=== PATIENT | male | born 1950 | race Caucasian/White ===

== ENCOUNTER 2019-01-25 19:37 | Emergency (ER) | payer OTHER ==
[~2019-01-25] VITALS: Ht 172.7 cm; Wt 111.6 kg
[2019-01-25 21:50] LABS: BILIRUBIN,URINE NEGATIVE (NEGATIVE); CLARITY,URINE CLEAR (CLEAR); COLOR,URINE COLORLESS (YELLOW); KETONES,URINE NEGATIVE (NEGATIVE); LEUKOCYTE ESTERASE ,URINE NEGATIVE (NEGATIVE); NITRITE,URINE NEGATIVE (NEGATIVE); PROTEIN,URINE DIPSTICK NEGATIVE (NEGATIVE); URINE UROBILINOGEN 0.2 mg/dL (0.2 - 1)
[2019-01-25 22:39] LABS: RBC,URINE 0-5 /HPF (0-5); WBC,URINE (MAN) 0-5 /HPF (0-5)
== END 2019-01-25 23:04 | disposition left against medical advice (07) ==
LOC: ER 19:37
DX: I10 Essential (primary) hypertension (principal)
CPT/HCPCS: 81001; 87086

== ENCOUNTER 2020-03-26 13:28 | Emergency (ER) | payer OTHER ==
[~2020-03-26] VITALS: Ht 172.7 cm; Wt 111.6 kg
[2020-03-26] MEDS ORDERED: SODIUM CHLORIDE 0.9% 1000ML 1,000 ML IV STA (13:59)
[2020-03-26 14:18] LABS: BASOPHILS # (AUTO) 0.1 (0.0-0.1); BASOPHILS % 0.7 % (0.0-1.0); EOSINOPHILS # (AUTO) 0.1 (0.0-0.4); EOSINOPHILS % 1.1 % (0.0-6.0); HEMATOCRIT 49.2 % (38.2-49.6); HEMOGLOBIN 15.9 g/dL (14.0-18.0); LYMPHOCYTES # (AUTO) 1.1 (1.0-3.2); LYMPHOCYTES % 14.6 % (18.0-39.1); MEAN CORPUSCULAR HEMOGLOBIN 28.6 pg (28-32); MEAN CORPUSCULAR HGB CONC 32.3 g/dL (31-35); MEAN CORPUSCULAR VOLUME 88.6 fL (81-99); MONOCYTES # (AUTO) 0.6 (0.2-0.8); MONOCYTES % 7.5 % (4.4-11.3); NEUTROPHILS # (AUTO) 5.7 (2.1-6.9); NEUTROPHILS % 75.8 % (38.7-80.0); PLATELET COUNT 248 x10e3/uL (140-360); RED BLOOD COUNT 5.55 x10e6/uL (4.3-5.7); RED CELL DISTRIBUTION WIDTH 13.7 % (11.7-14.4)
[2020-03-26 14:33] LABS: INR 0.87; PROTHROMBIN TIME 12.3 seconds (11.9-14.5)
[2020-03-26 14:34] LABS: PARTIAL THROMBOPLASTIN TIME 24.9 seconds (23.8-35.5)
[2020-03-26 14:38] LABS: BILIRUBIN,URINE NEGATIVE (NEGATIVE); CLARITY,URINE SL CLOUDY (CLEAR); COLOR,URINE YELLOW (YELLOW); KETONES,URINE NEGATIVE (NEGATIVE); LEUKOCYTE ESTERASE ,URINE NEGATIVE (NEGATIVE); NITRITE,URINE NEGATIVE (NEGATIVE); PROTEIN,URINE DIPSTICK NEGATIVE (NEGATIVE); URINE UROBILINOGEN 0.2 mg/dL (0.2 - 1)
[2020-03-26 14:41] LABS: ALANINE AMINOTRANSFERASE 25 IU/L (0-55); ALBUMIN 3.9 g/dL (3.5-5.0); ALKALINE PHOSPHATASE 70 IU/L (40-150); ANION GAP 13.7 mmol/L (8-16); BLOOD UREA NITROGEN 27 mg/dL (7-26); BUN/CREATININE RATIO 20 (6-25); CALCIUM 9.9 mg/dL (8.4-10.2); CARBON DIOXIDE 24 mmol/L (22-29); CHLORIDE 104 mmol/L (98-107); CREATINE KINASE 170 IU/L (30-200); CREATININE, SERUM 1.36 mg/dL (0.72-1.25); EST GLOMERULAR FILTRATION RATE 52 ML/MIN (60-); GLUCOSE 154 mg/dL (74-118); MAGNESIUM 1.9 MG/DL (1.3-2.1); POTASSIUM 4.7 mmol/L (3.5-5.1); SODIUM 137 mmol/L (136-145)
[2020-03-26 14:53] LABS: BACTERIA,URINE RARE /HPF; MUCUS,URINE FEW (RARE)
--- NOTE | 2020-03-26 15:32 | Diagnostic Imaging Report ---
EXAMINATION: CHEST SINGLE (PORTABLE) INDICATION: Weakness, shortness of breath COMPARISON: None FINDINGS: LINES/TUBES:None LUNGS:The lungs are moderately inflated. Mild bibasilar opacities. PLEURA:No pleural effusion or pneumothorax. MEDIASTINUM:The cardiomediastinal silhouette appears normal in size and shape. BONES/SOFT TISSUES:No acute osseous injury. ABDOMEN:No free air under the diaphragm. IMPRESSION: Mild bibasilar opacities likely represent subsegmental atelectasis, however pneumonitis should be excluded clinically. Signed by: Bro Clemons MD on 03/26/2020 3:29 PM
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
[2020-03-26 18:41] VITALS: BP 103/56
== END 2020-03-26 18:45 | disposition home or self-care (01) ==
LOC: ER 14:50
DX: J18.9 Pneumonia, unspecified organism (principal); N28.9 Disorder of kidney and ureter, unspecified; E86.0 Dehydration
CPT/HCPCS: 36415; 71045; 80053; 81001; 82550; 82553; 83735; 83880; 84484; 85025; 85610; 85730; 87040; 87086; 93005; 99284; J7030

== ENCOUNTER 2020-06-07 07:44 | Inpatient (IN) | payer OTHER ==
[2020-06-04 16:01] LABS: BASOPHILS % 0.5 % (0.0-1.0); EOSINOPHILS # (AUTO) 0.1 (0.0-0.4); HEMATOCRIT 47.2 % (38.2-49.6); HEMOGLOBIN 15.5 g/dL (14.0-18.0); LYMPHOCYTES # (AUTO) 1.3 (1.0-3.2); LYMPHOCYTES % 16.4 % (18.0-39.1); MEAN CORPUSCULAR HEMOGLOBIN 28.4 pg (28-32); MEAN CORPUSCULAR HGB CONC 32.8 g/dL (31-35); MEAN CORPUSCULAR VOLUME 86.6 fL (81-99); MONOCYTES # (AUTO) 0.5 (0.2-0.8); MONOCYTES % 6.2 % (4.4-11.3); NEUTROPHILS # (AUTO) 5.9 (2.1-6.9); NEUTROPHILS % 75.4 % (38.7-80.0); PLATELET COUNT 236 x10e3/uL (140-360); RED BLOOD COUNT 5.45 x10e6/uL (4.3-5.7); RED CELL DISTRIBUTION WIDTH 13.8 % (11.7-14.4)
[2020-06-04 16:18] LABS: ANION GAP 14.7 mmol/L (8-16); CALCIUM 9.4 mg/dL (8.4-10.2); CREATININE, SERUM 1.36 mg/dL (0.72-1.25); POTASSIUM 4.7 mmol/L (3.5-5.1)
--- NOTE | 2020-06-04 16:49 | Diagnostic Imaging Report ---
EXAMINATION: CHEST 2 VIEWS INDICATION: Preoperative evaluation of the lungs. COMPARISON: Chest x-ray on 03/26/2020 FINDINGS: TUBES and LINES: None. LUNGS: Normal lung volumes. Lungs are clear. No consolidations. Bibasilar atelectasis. PLEURA: No pleural effusion or pneumothorax. HEART AND MEDIASTINUM: The cardiomediastinal silhouette is unremarkable. BONES AND SOFT TISSUES: No acute osseous lesion. Soft tissues are unremarkable. UPPER ABDOMEN: No free air under the diaphragm. IMPRESSION: No acute thoracic radiographic abnormality. Signed by: Rigoberto Roberts MD on 06/04/2020 4:46 PM
[~2020-06-07] VITALS: Ht 172.7 cm; Wt 109.8 kg
[~2020-06-07 07:44] MED LIST: ATENOLOL50 MG; GLYBURIDE5 MG PO; JANUVIA100 MG PO; JARDIANCE10 MG; LISINOPRIL2.5 MG PO; METFORMIN HCL500 MG PO; OMEPRAZOLE40 MG; PRAVACHOL20 MG PO
[2020-06-07] MEDS ORDERED: GENTAMICIN 80MG/NS 100 ML 200 ML IV ONE (09:00)
[2020-06-07] MEDS ORDERED: PIPER-TAZ 3.375 GM 50 ML ONE (09:00)
[2020-06-07] MEDS ORDERED: B&O 60MG R/S 60 MG SUPP PR ONE (10:18)
[2020-06-07] MEDS ORDERED: IOPAMIDOL 300MG/ML 50ML INFUS..BTL IV ONE (10:18)
[2020-06-07] MEDS ORDERED: DEXAMETHASONE SOD PHOS INJ 4 MG/ML VIAL ONE (12:33)
[2020-06-07] MEDS ORDERED: ONDANSETRON HCL INJ 2MG/ML 2ML 2 MG/ML VIAL ONE (12:33)
[2020-06-07] MEDS ORDERED: SEVOFLURANE INHAL SOLN 250 ML PEN BTL ONE (12:33)
[2020-06-07] MEDS ORDERED: EPHEDRINE SULFATE INJ 50 MG/ML VIAL ONE (12:33)
[2020-06-07] MEDS ORDERED: PROPOFOL IV EMULSION 10 MG/ML 20 ML VIAL ONE (12:33)
[2020-06-07] MEDS ORDERED: LIDOCAINE HCL 2% LOCAL INJ 5 ML SDV VIAL INJ ONE (12:33)
[2020-06-07] MEDS ORDERED: B&O 60MG R/S 60 MG SUPP PR PRN (13:15)
[2020-06-07] MEDS ORDERED: ONDANSETRON HCL INJ 2MG/ML 2ML 2 MG/ML VIAL IV PRN (13:15)
[2020-06-07] MEDS ORDERED: TRAMADOL HCL 50 MG TAB PO PRN (13:15)
[2020-06-07] MEDS ORDERED: DIPHENHYDRAMINE HCL 25 MG CAP PO PRN (13:15)
[2020-06-07] MEDS ORDERED: D5.45%NS/KCL 20MEQ 1,000 ML IV SCH (13:15)
[2020-06-07] MEDS ORDERED: PHENAZOPYRIDINE HCL 100 MG TAB PO PRN (13:15)
[2020-06-07] MEDS ORDERED: FENTANYL CITRATE/PF 100MCG/2 ML INJ ONE (13:44)
[2020-06-07] MEDS ORDERED: MIDAZOLAM HCL 2 MG/2 ML VIAL ONE (13:44)
[2020-06-07] MEDS ORDERED: ACETAMINOPHEN 325 MG TAB PO PRN (14:30)
[2020-06-07] MEDS ORDERED: DEXTROSE 50% SYRINGE 50 ML IV PRN (14:30)
[2020-06-07 14:48] LABS: BASOPHILS % 0.2 % (0.0-1.0); EOSINOPHILS % 0.1 % (0.0-6.0); HEMATOCRIT 51.1 % (38.2-49.6); HEMOGLOBIN 16.7 g/dL (14.0-18.0); LYMPHOCYTES # (AUTO) 0.7 (1.0-3.2); LYMPHOCYTES % 5.1 % (18.0-39.1); MEAN CORPUSCULAR HEMOGLOBIN 28.6 pg (28-32); MEAN CORPUSCULAR HGB CONC 32.7 g/dL (31-35); MEAN CORPUSCULAR VOLUME 87.5 fL (81-99); MONOCYTES # (AUTO) 0.2 (0.2-0.8); MONOCYTES % 1.4 % (4.4-11.3); NEUTROPHILS # (AUTO) 12.2 (2.1-6.9); NEUTROPHILS % 92.8 % (38.7-80.0); PLATELET COUNT 223 x10e3/uL (140-360); RED BLOOD COUNT 5.84 x10e6/uL (4.3-5.7)
[2020-06-07 15:05] LABS: ANION GAP 15.2 mmol/L (8-16); BLOOD UREA NITROGEN 16 mg/dL (7-26); BUN/CREATININE RATIO 16 (6-25); CALCIUM 8.8 mg/dL (8.4-10.2); CARBON DIOXIDE 21 mmol/L (22-29); CHLORIDE 104 mmol/L (98-107); CREATININE, SERUM 0.99 mg/dL (0.72-1.25); EST GLOMERULAR FILTRATION RATE > 60 ML/MIN (60-); GLUCOSE 209 mg/dL (74-118); POTASSIUM 5.2 mmol/L (3.5-5.1); SODIUM 135 mmol/L (136-145)
[2020-06-07 15:38] VITALS: BP 124/78
--- NOTE | 2020-06-07 15:46 | Pre Op History & Physical ---
The patient of leslie, Dr. Bocanegra, Dr. Rafia Newton. HISTORY OF PRESENT ILLNESS: Oliver 70-year-old gentleman admitted for elective TURP. The patient developed progressive urinary frequency and incontinence. He has a history of diabetes, hypertension, anxiety, and degenerative joint disease. He has had right total knee replacement and shoulder surgery. He is an ex-smoker. Does not drink. ALLERGIES: HE SAYS TO BE ALLERGIC TO CODEINE AND LEVAQUIN. HOME MEDICATIONS: Have included albuterol, atenolol, glyburide, Januvia, Jardiance, lisinopril, and metformin. PAST MEDICAL HISTORY: Diverticular disease and gastroesophageal reflux. FAMILY HISTORY: Positive for chronic obstructive pulmonary disease. SOCIAL HISTORY: Works down the [employer], was a operations welder, single. Smoked as many as two packs a day for 35 years, now quit. PHYSICAL EXAMINATION: GENERAL: This is a well-developed white male, looking his stated age. VITAL SIGNS: Temperature 97.4, pulse 66, respirations 16, and blood pressure 124/70. HEAD: Normocephalic and atraumatic. EYES: Extraocular movements intact. LUNGS: Clear. HEART: Regular rhythm. ABDOMEN: Nontender. Purvis catheter is in place, irrigating catheter with pinkish urine. EXTREMITIES: Scar in the right knee. Extremities nonedematous. IMPRESSION AND PLAN: Diabetes, benign prostatic hyperplasia, status post transurethral resection of the prostate, anxiety disorder, and hypertension. We will cautiously resume home medications. Thank you for this kind referral. MD ZOYA Lee/MODL /[id number]
[2020-06-07] MEDS: PIPER-TAZ 3.375 GM 50 ML IV SCH (16:33)
[2020-06-07 16:39] VITALS: BP 112/74
[2020-06-07] MEDS: DOCUSATE SODIUM 100 MG CAP PO SCH (16:58)
[2020-06-07] MEDS: INSULIN LISPRO 100 UNIT/1 ML 3ML VIAL SQ SCH ×2 (17:32→22:48)
[2020-06-07 20:00] VITALS: BP 118/75
[2020-06-07] MEDS: PRAVASTATIN 20 MG TAB PO SCH (21:21)
--- NOTE | 2020-06-07 23:06 | NUR ---
Notified Dr. Bocanegra of Pt K+ level at 5.2 and pt currently on D5 1/2 Ns with 20mEq KCl. New order to discomtinue order and start D5 1/2 NS at 125ml/hr.
[2020-06-07] MEDS: DEXTROSE 5%/0.45% SOD CHL 1,000 ML IV SCH ×2 (23:26→23:30)
[2020-06-08] VITALS (8 sets, daily range): BP systolic 95–132; BP diastolic 65–79
[2020-06-08] MEDS: PIPER-TAZ 3.375 GM 50 ML IV SCH ×3 (02:23→16:47)
[2020-06-08 05:56] LABS: BASOPHILS % 0.2 % (0.0-1.0); EOSINOPHILS % 0.2 % (0.0-6.0); HEMOGLOBIN 15.3 g/dL (14.0-18.0); LYMPHOCYTES # (AUTO) 1.2 (1.0-3.2); LYMPHOCYTES % 10.2 % (18.0-39.1); MEAN CORPUSCULAR HEMOGLOBIN 28.5 pg (28-32); MEAN CORPUSCULAR HGB CONC 32.6 g/dL (31-35); MEAN CORPUSCULAR VOLUME 87.7 fL (81-99); MONOCYTES # (AUTO) 0.7 (0.2-0.8); MONOCYTES % 6.5 % (4.4-11.3); NEUTROPHILS # (AUTO) 9.3 (2.1-6.9); NEUTROPHILS % 82.5 % (38.7-80.0); PLATELET COUNT 243 x10e3/uL (140-360); RED BLOOD COUNT 5.36 x10e6/uL (4.3-5.7); RED CELL DISTRIBUTION WIDTH 13.9 % (11.7-14.4)
[2020-06-08 06:22] LABS: ANION GAP 12.5 mmol/L (8-16); BLOOD UREA NITROGEN 16 mg/dL (7-26); BUN/CREATININE RATIO 15 (6-25); CALCIUM 8.7 mg/dL (8.4-10.2); CARBON DIOXIDE 25 mmol/L (22-29); CHLORIDE 102 mmol/L (98-107); EST GLOMERULAR FILTRATION RATE > 60 ML/MIN (60-); GLUCOSE 212 mg/dL (74-118); POTASSIUM 4.5 mmol/L (3.5-5.1); SODIUM 135 mmol/L (136-145)
[2020-06-08] MEDS ORDERED: LISINOPRIL 2.5 MG TAB PO SCH (09:00)
[2020-06-08] MEDS: ATENOLOL 50 MG TAB PO SCH (09:00)
[2020-06-08] MEDS ORDERED: LISINOPRIL 10 MG TAB PO SCH (09:00)
[2020-06-08] MEDS: SITAGLIPTIN 100 MG TAB PO SCH (09:20)
[2020-06-08] MEDS: DOCUSATE SODIUM 100 MG CAP PO SCH ×2 (09:20→16:47)
[2020-06-08] MEDS: PANTOPRAZOLE SOD 40 MG TABEC PO SCH (09:20)
[2020-06-08] MEDS: DEXTROSE 5%/0.45% SOD CHL 1,000 ML IV SCH ×3 (09:23→23:10)
[2020-06-08] MEDS: INSULIN LISPRO 100 UNIT/1 ML 3ML VIAL SQ SCH ×4 (09:39→21:24)
[2020-06-08] MEDS ORDERED: LISINOPRIL 10 MG TAB PO PRN (10:15)
[2020-06-08] MEDS ORDERED: GLYBURIDE 5 MG TAB PO SCH (14:00)
[2020-06-08] MEDS: GLYBURIDE 5 MG TAB PO SCH (14:38)
--- NOTE | 2020-06-08 19:00 | NUR ---
RECEIVED PATIENT IN BEDSIDE SHIFT REPORT. PATIENT RESTING IN BED AT THIS TIME. CBI RUNNING, URINE VU RED, NO CLOTS NOTED. R HAND IV RUNNING D51/2NS AT 125ML/HR. NO PAIN REPORTED. NO S&S OF DISTRESS NOTED. BED LOCKED IN LOWEST POSITION, SIDE RAILS UPX2, CALL LIGHT IN REACH.
[2020-06-08] MEDS: PRAVASTATIN 20 MG TAB PO SCH (21:14)
[2020-06-09] VITALS: BP 127/77
[2020-06-09] MEDS: PIPER-TAZ 3.375 GM 50 ML IV SCH ×3 (01:21→16:40)
[2020-06-09 04:00] VITALS: BP 113/61
[2020-06-09 06:03] LABS: BASOPHILS % 0.5 % (0.0-1.0); EOSINOPHILS # (AUTO) 0.1 (0.0-0.4); EOSINOPHILS % 1.2 % (0.0-6.0); HEMATOCRIT 45.3 % (38.2-49.6); HEMOGLOBIN 14.9 g/dL (14.0-18.0); LYMPHOCYTES # (AUTO) 1.8 (1.0-3.2); LYMPHOCYTES % 20.9 % (18.0-39.1); MEAN CORPUSCULAR HEMOGLOBIN 29.9 pg (28-32); MEAN CORPUSCULAR HGB CONC 32.9 g/dL (31-35); MEAN CORPUSCULAR VOLUME 90.8 fL (81-99); MONOCYTES # (AUTO) 0.6 (0.2-0.8); MONOCYTES % 7.4 % (4.4-11.3); NEUTROPHILS % 69.7 % (38.7-80.0); PLATELET COUNT 188 x10e3/uL (140-360); RED BLOOD COUNT 4.99 x10e6/uL (4.3-5.7); RED CELL DISTRIBUTION WIDTH 14.3 % (11.7-14.4)
[2020-06-09 06:12] LABS: ANION GAP 13.3 mmol/L (8-16); BLOOD UREA NITROGEN 12 mg/dL (7-26); BUN/CREATININE RATIO 13 (6-25); CALCIUM 8.7 mg/dL (8.4-10.2); CARBON DIOXIDE 24 mmol/L (22-29); CHLORIDE 103 mmol/L (98-107); CREATININE, SERUM 0.94 mg/dL (0.72-1.25); EST GLOMERULAR FILTRATION RATE > 60 ML/MIN (60-); GLUCOSE 179 mg/dL (74-118); POTASSIUM 4.3 mmol/L (3.5-5.1); SODIUM 136 mmol/L (136-145)
[2020-06-09 06:31] LABS: CHOL/HDL RATIO 5.2 (3.9-4.7)
[2020-06-09] MEDS: INSULIN LISPRO 100 UNIT/1 ML 3ML VIAL SQ SCH ×3 (07:30→16:30)
--- NOTE | 2020-06-09 07:32 | NUR ---
24F maldonado discontinued as ordered. Tolerated well
--- NOTE | 2020-06-09 08:10 | NUR ---
Patient voided without discomfort. Bloody urine noted. Will continue to monitor.
[2020-06-09 08:36] VITALS: BP 133/78
[2020-06-09] MEDS: PANTOPRAZOLE SOD 40 MG TABEC PO SCH (08:37)
[2020-06-09] MEDS: SITAGLIPTIN 100 MG TAB PO SCH (08:37)
[2020-06-09] MEDS: GLYBURIDE 5 MG TAB PO SCH (08:37)
[2020-06-09] MEDS: ATENOLOL 50 MG TAB PO SCH (08:37)
[2020-06-09] MEDS: DOCUSATE SODIUM 100 MG CAP PO SCH ×2 (08:37→16:40)
[2020-06-09 08:41] VITALS: BP 133/78
[2020-06-09 12:44] VITALS: BP 127/85
--- NOTE | 2020-06-09 13:40 | NUR ---
post void bladder scan done. 0 ml noted.
--- NOTE | 2020-06-09 13:45 | NUR ---
Notified O that 5th serial urine is light red and no clots noted. Per patient cleared to discharge
[2020-06-09] MEDS ORDERED: TRAMADOL HCL100 MG PO (16:47)
[2020-06-09] MEDS ORDERED: ceftin PO (16:48)
[2020-06-09] MEDS ORDERED: PYRIDIUM200 MG PO (16:48)
[2020-06-09 16:56] VITALS: BP 118/73
--- NOTE | 2020-06-09 17:20 | NUR ---
Right hand IV discontinued. No signs of infiltration noted. 2x2 gauze and coban placed. Taken via wheelchair to personal car. AAOX4 to time, person, place, situation. Respirations even and unlabored. Denies pain. Discharge instructions, rx, and all personal belongings taken with patient.
--- NOTE | 2020-06-09 17:33 | Discharge Summary ---
FINAL DIAGNOSES: 1. Status post transurethral resection of the prostate. 2. Diabetes. 3. Hypertension. 4. Chronic obstructive pulmonary disease. ADMISSION HISTORY AND HOSPITAL COURSE: Mr. Gray is a 70-year-old male who was admitted for TURP. The patient has improved and Dr. Bocanegra has recommended the patient can be discharged home. He will continue his home medication and will be discharged home to follow up with Dr. Flores as an outpatient. MD STEVE Bolden/GRAY /[id number]
--- NOTE | 2020-06-12 03:39 | Operative Report ---
DATE OF PROCEDURE: 06/07/2020 SURGEON: Bruce Bocanegra MD PREOPERATIVE DIAGNOSES: 1. Obstructive BPH. 2. Elevated PSA. 3. Incomplete bladder emptying. POSTOPERATIVE DIAGNOSES: 1. Obstructive BPH. 2. Elevated PSA. 3. Incomplete bladder emptying. OPERATIONS PERFORMED: 1. Transrectal sonography interpretation, no radiologist present. 2. Radiological services with supervision and interpretation of needle guidance, no radiologist present. 3. Transrectal needle biopsies of the prostate . 4. Cystourethroscopy with bilateral ureteral catheterization and retrograde ureteropyelography (separate procedure performed for the incomplete bladder emptying). 5. Interpretation of retrograde ureteropyelography. 6. Supervision of fluoroscopy, no radiologist present. 7. Cystourethroscopy with transurethral resection of the prostate utilizing the plasma button electrode (separate staged procedure for the obstructive BPH). ANESTHESIA: General. COMPLICATIONS: None. CLINICAL SUMMARY: Lesli Gray is a 70-year-old man with the above preoperative diagnoses. He is brought for the above procedures. He is aware of the risks of bleeding, infection, injury to adjacent structures, incontinence, impotence, retrograde ejaculation, need for additional procedures and elected to proceed. OPERATIVE PROCEDURE IN DETAIL: Informed consent was verified. Lesli Gray was properly identified, taken to the operating room, placed on the cystoscopy table in supine position. Anesthesia was uneventfully begun. The patient was then carefully gently repositioned in the dorsal lithotomy position with all pressure points well padded. Transrectal sonography was performed. Interpretation of transrectal sonography, the capsule of prostate was smooth. Seminal vesicles were unremarkable. The prostate measured 92 mL. There was nodular BPH noted. There were some calcifications noted at the junction between the transition zone and the peripheral zone, no suspicious hypoechoic lesions were identified. With ultrasonographic guidance, needle biopsies of the prostate were taken. Biopsies were taken from 12 different locations and sent in 6 different specimen jars. These were differentiated right versus left and base versus mid versus apex. Digital rectal examination prior to the performance of the ultrasonography, digital rectal examination revealed a large and 50 g prostate, smooth, nonfluctuant without any nodules. The patient's genitalia were then prepared and draped in usual sterile fashion. The cystoscope sheath with the visual obturator in place was atraumatically inserted in the patient's urethra. It was guided unremarkable urethra through normal sphincteric region through the prostate bed, which was significant for trilobar prostatic hypertrophy with a prominent ball-valving intravesical median lobe and kissing lateral lobes. We entered the patient's bladder. Panendoscopy revealed trabeculations, but there were no tumors, there were no stones, and no suspicious lesions. Ureteral catheter was used to cannulate each ureter and retrograde ureteral pyelograms were performed. Interpretation of retrograde ureteropyelography contrast was instilled in retrograde fashion bilaterally. There were no tumors, no stones, no diverticula. Unobstructed drainage was observed bilaterally fluoroscopically. J-hooking was noted. In summary, ureteral tortuosity was also present. The cystoscope was withdrawn. The resectoscope was atraumatically placed with an obturator. We then utilized the plasma button electrode to vaporize the median lobe down to its base, taking care to avoid injuring the ureteral orifices. We then vaporized the lateral lobes from the bladder neck to maneuver past the verumontanum and down the surgical capsule. Pinpoint electrocautery was utilized to achieve hemostasis. The resectoscope was then withdrawn. A Purvis catheter was placed, 50 mL were instilled into the 30 mL balloon. Catheter was irrigated to and fro to ensure it worked properly. Catheter was then placed in continuous bladder irrigation with almost clear efflux and the patient was uneventfully reversed from anesthesia and taken to recovery room in stable condition. There were no complications to the procedure. The patient tolerated the procedure well. Estimated blood loss was minimal. We will proceed with routine postoperative care and ongoing urological followup and we will eagerly await the pathology results. Bruce MD Sahra OH/MODL /[id number] cc: Chidi Flores MD
== END 2020-06-09 17:20 | disposition home or self-care (01) | DRG 713 ==
LOC: OR 07:44 → PACU V 13:11 → MED/SURG 14:23
PROVIDERS: ADMIT Internal Medicine Pulmonary Disease; ATTEND Internal Medicine Pulmonary Disease
PROC: BT141ZZ Fluoroscopy of Kidneys, Ureters and Bladder using Low Osmolar Contrast (ICD-10-PCS; 2020-06-07)
PROC: 0VB03ZX Excision of Prostate, Percutaneous Approach, Diagnostic (ICD-10-PCS; 2020-06-07)
PROC: 0VT08ZZ Resection of Prostate, Via Natural or Artificial Opening Endoscopic (ICD-10-PCS; principal; 2020-06-07 11:00)
PROC: 0T788ZZ Dilation of Bilateral Ureters, Via Natural or Artificial Opening Endoscopic (ICD-10-PCS; 2020-06-07 11:00)
DX: N40.1 Benign prostatic hyperplasia with lower urinary tract symptoms (principal); N13.8 Other obstructive and reflux uropathy; R39.14 Feeling of incomplete bladder emptying; E11.9 Type 2 diabetes mellitus without complications; J44.9 Chronic obstructive pulmonary disease, unspecified; Z11.59 Encounter for screening for other viral diseases; F41.9 Anxiety disorder, unspecified; I10 Essential (primary) hypertension
CPT/HCPCS: 36415; 71046; 74420; 76872; 76998; 80048; 80061; 82948; 83036; 83735; 85025; 88305; 88342; C1758; J1100; J1580; J2001; J2250; J2405; J2543; J3010; U0002

== ENCOUNTER 2021-10-20 12:10 | Emergency (ER) | payer MEDICARE, OTHER ==
[~2021-10-20] VITALS: Ht 172.7 cm; Wt 109.8 kg
[~2021-10-20 12:10] MED LIST changes: +PYRIDIUM200 MG PO; +TRAMADOL HCL100 MG PO; +ceftin PO
[2021-10-20 12:28] LABS: BASOPHILS % 0.6 % (0.0-1.0); EOSINOPHILS # (AUTO) 0.1 (0.0-0.4); EOSINOPHILS % 1.1 % (0.0-6.0); HEMATOCRIT 45.3 % (38.2-49.6); HEMOGLOBIN 14.6 g/dL (14.0-18.0); LYMPHOCYTES # (AUTO) 1.2 (1.0-3.2); LYMPHOCYTES % 18.1 % (18.0-39.1); MEAN CORPUSCULAR HEMOGLOBIN 28.9 pg (28-32); MEAN CORPUSCULAR HGB CONC 32.2 g/dL (31-35); MEAN CORPUSCULAR VOLUME 89.5 fL (81-99); MONOCYTES # (AUTO) 0.5 (0.2-0.8); MONOCYTES % 6.9 % (4.4-11.3); NEUTROPHILS # (AUTO) 4.8 (2.1-6.9); PLATELET COUNT 232 x10e3/uL (140-360); RED BLOOD COUNT 5.06 x10e6/uL (4.3-5.7); RED CELL DISTRIBUTION WIDTH 13.7 % (11.7-14.4)
[2021-10-20] MEDS ORDERED: SODIUM CHLORIDE 0.9% 1000ML 1,000 ML IV ONE (12:30)
[2021-10-20] MEDS ORDERED: SODIUM CHLORIDE 0.9% 1000ML 1,000 ML ONE (12:31)
[2021-10-20 12:47] LABS: ALBUMIN 3.7 g/dL (3.5-5.0); ALBUMIN/GLOBULIN RATIO 0.9 (0.8-2.0); ANION GAP 16.5 mmol/L (8-16); CALCIUM 9.6 mg/dL (8.4-10.2); CREATININE, SERUM 1.2 mg/dL (0.72-1.25); POTASSIUM 4.5 mmol/L (3.5-5.1)
[2021-10-20 14:01] VITALS: BP 158/85
== END 2021-10-20 14:02 | disposition home or self-care (01) ==
LOC: ER 12:16
DX: E11.65 Type 2 diabetes mellitus with hyperglycemia (principal); I10 Essential (primary) hypertension; K21.9 Gastro-esophageal reflux disease without esophagitis; Z79.84 Long term (current) use of oral hypoglycemic drugs
CPT/HCPCS: 36415; 80053; 82948; 85025; 99284; J7030